=== PATIENT | female | born 1950 | race Caucasian/White ===

== ENCOUNTER 2020-06-30 15:28 | Emergency (ER) | payer MEDICARE, SELFPAY ==
[2020-06-30 16:05] VITALS: BP 143/89; PULSE 121; RESP 24; TEMP 38.1; O2SAT 90; BMI 18.8
--- NOTE | 2020-06-30 16:14 | XR_ITS ---
PROCEDURE: XR CHEST PORTABLE Referring Doctor: Ty Mora Patient Age:69Y CLINICAL HISTORY: covid exposure/O2 sat 90% Smoker COMPARISON: CR LS5 LUMBAR SPINE 5 VIEWS from 10/25/2014 CT ABDPELW/O CT ABD PELVIS W/O CONTRAST from 11/03/2014 FINDINGS: AP portable upright chest but no previous chest films for comparison . Lungs appear mildly hyperexpanded at the mid and upper lung osborne with slight coarsening markings towards the bases this could reflect some developing emphysematous changes When compared to a previous CT abdomen 2015 which included lung bases there seems to be some attenuation markings at the right infrahilar region and medial right lung base but could not exclude and would question possible early infiltrate here. If symptoms progress consider follow-up. Of the hilar regions appear satisfactory. Calcified aortic knob. Heart is normal in size. Pulmonary vascularity appears normal. Chest wall unremarkable. No pleural effusion Slight blunting at right CP angle I believe was present on old studies 2014 and thus tend to favor more likely reflects chronic pleural changes rather than small pleural effusion .. . IMPRESSION: Suggestion mild hyperexpansion suspect reflecting mild chronic changes . Mild accentuation of markings at the right infrahilar region and medial right lung base but Question and could not exclude possible active infiltrate here since.-Subtle change here since 2015 images Clinical correlation required the the the Dictated by: Marco Conroy MD 06/30/2020 18:15 Marco Conroy MD in [place] 06/30/2020 18:15
--- NOTE | 2020-06-30 16:59 | HMH.EDUTC ---
[facility] [place] Clinical Impression: Viral syndrome, Exposure to COVID-19 virus Acute bronchitis Qualifiers: Bronchitis organism: unspecified organism Qualified Code(s): J20.9 - Acute bronchitis, unspecified Disposition: Home, Self-Care Condition on Discharge: Good Instructions: DI for COVID-19 (Suspected or Confirmed ), Preventing the Spread of Coronavirus Discharge Instructions Additional Instructions: Drink plenty of fluids. Take tylenol for pain or fever. Return if you begin to have difficulty breathing. Follow up with your regular doctor. GO TO THE ER FOR ANY WORSENING SYMPTOMS Prescriptions: Benzonatate [Tessalon Perle 100mg Cap] 100 mg PO TIDP PRN #30 cap PRN Reason: Cough Transmission Status: Received by [id number] Azithromycin [Z-Brian 250mg Tab*] 250 mg PO UD DOSE PK #6 tab Transmission Status: Received by [id number] Referrals: Dimitry Amezquita MD [Primary Care Provider] - Time of Disposition: 17:05 Medical Decision Making - Medical Records Medical records reviewed: No: I reviewed the patient's medical records. - Arthur Inquiry Pt receiving controlled substance: No Vital Signs: 06/30/20 16:05 06/30/20 17:26 Temperature 100.6 F H 100.6 F H Temperature Source Oral Pulse Rate 121 H Pulse Rate [Right Brachial] 121 H Respiratory Rate 24 24 Blood Pressure 143/89 H Blood Pressure [Right Arm] 143/89 H Blood Pressure Mean [Right Arm] 107 Blood Pressure Source [Right Arm] Automatic Cuff Blood Pressure Position [Right Arm] Sitting 02 Sat by Pulse Oximetry 90 L Oxygen Delivery Method Room Air - Lab Data Lab Results 06/30/20 16:14: Influenza Type A Ag Negative, Influenza Type B Ag Negative Orders (Tests/Meds): ED MEDICATIONS Discontinued Medications Generic Name Dose Route Start Last Admin Trade Name Freq PRN Reason Stop Dose Admin Ceftriaxone Sodium 1 gm 06/30/20 17:06 06/30/20 17:20 Ceftriaxone 1gm Vial IM 06/30/20 17:07 1 gm ONCE ONE Administration Protocol Lidocaine HCl 0 ml 06/30/20 17:06 06/30/20 17:20 Lidocaine 1% 5ml Pf Vial IM 06/30/20 17:07 2.1 ml ONCE ONE Administration [facility] [place] - General Stated complaint: Fever, cough, soa (no exposure) Time Seen by Provider: 06/30/20 16:59 Mode of Arrival: Ambulatory Source of Information: Patient Limitations: No Limitations Description of Symptoms (Recalled from Triage Doc. by RN): PATIENT C/O FEVER, CHILLS, BACK ACHE, DECREASED APPETITE AND CONGESTED COUGH SINCE THURSDAY. REQUESTING COVID TEST. NO KNOWN SICK CONTACTS HEENT Symptoms (Recalled from RN notes): No Resp Symptoms (Recalled from RN notes): Yes Skin Symptoms (Recalled from RN notes): No MS Symptoms (Recalled from RN notes): Yes Functional Status (Recalled from RN notes): WNL - History of Present Illness Provider Complaint: She states that for the past 2 days she has been feeling bad, having body aches, coughing and running a fever up to 101. - Related Data Previous Rx's Medication Instructions Recorded Azithromycin [Z-Brian 250mg Tab*] 250 mg PO UD DOSE PK #6 tab 06/30/20 Benzonatate [Tessalon Perle 100mg 100 mg PO TIDP PRN #30 cap 06/30/20 Cap] Allergies Allergy/AdvReac Type Severity Reaction Status Date / Time No Known Allergies Allergy Verified 12/11/17 15:19 - Worker's Comp Is this a Worker's Comp case?: No [facility] History - Hepatitis A Screen Drug use history?: No High risk sexual behaviors?: No History of sexually transmitted infection?: No Currently employed?: No Childcare worker?: No Do you have indoor plumbing?: Yes Do you have electricity?: Yes Attestation statement:: This patient has been screened for Hepatitis A risk factors. I have reviewed the patient's past medical history: Yes Amputation: No Fractures: No Comment: Basal cell carcinoma removed from arm and chest - Social History Smoking Status: Current every day smoker Tobacco Type: c
[2020-06-30 17:19] LABS: UTC Influenza A Antigen Negative (Negative); UTC Influenza B Antigen Negative (Negative)
[2020-06-30 17:26] VITALS: BP 143/89; PULSE 121; RESP 24; TEMP 38.1; O2SAT 90
--- NOTE | 2020-07-01 09:54 | PC.NURSE ---
patient notified of positive covid results
--- NOTE | 2020-07-01 13:41 | PC.NURSE ---
patient was instructed to follow up with her PCP on 07/02/20 as she has covid and meets the criteria for Bam infusion
== END 2020-06-30 17:32 | disposition home or self-care (01) ==
PROVIDERS: Emergency Provider Nurse Practitioner Family; PCP Family Medicine
DX: U07.1 COVID-19 (principal); J20.9 Acute bronchitis, unspecified; F17.210 Nicotine dependence, cigarettes, uncomplicated
CPT/HCPCS: G0463 ×2; 71045; 87804; 96372; 99202; U0003

== ENCOUNTER → 2021-04-23 15:44 | Outpatient (POV) | payer MEDICARE, SELFPAY | PROVIDERS: Visit Provider Dermatology | DX: Z00.00 Encounter for general adult medical examination without abnormal findings (principal) ==

== ENCOUNTER → 2022-01-07 13:13 | Outpatient (POV) | payer MEDICARE, SELFPAY | PROVIDERS: Visit Provider Dermatology | DX: Z00.00 Encounter for general adult medical examination without abnormal findings (principal) ==